=== PATIENT | male | born 1950 | race African-American/Black ===

== ENCOUNTER 2017-03-17 11:53 | Emergency (ER) | payer SELFPAY ==
[~2017-03-17] VITALS: Ht 182.9 cm; Wt 71.8 kg
[~2017-03-17 11:53] MED LIST: ALBUTEROL SULF8.5 GM IH; FLEXERIL10 MG PO; IBUPROFEN600 MG PO; MIRALAX255 GM PO; NAPROSYN500 MG PO; TRAMADOL HCL50 MG PO
[2017-03-17] MEDS ORDERED: MOBIC7.5 MG PO (16:37)
[2017-03-17] MEDS ORDERED: ULTRAM50 MG PO (16:37)
[2017-03-17] MEDS ORDERED: FLEXERIL10 MG PO (16:37)
[2017-03-17 16:56] VITALS: BP 134/74
== END 2017-03-17 16:56 | disposition home or self-care (01) ==
LOC: EME 11:53
DX: M54.9 Dorsalgia, unspecified (principal); M25.511 Pain in right shoulder; M25.562 Pain in left knee; X50.0XXA Overexertion from strenuous movement or load, initial encounter; Y99.0 Civilian activity done for income or pay; E78.5 Hyperlipidemia, unspecified; F17.200 Nicotine dependence, unspecified, uncomplicated
CPT/HCPCS: 71046; 73020; 73030; 73564; 99281; 99285

== ENCOUNTER 2017-05-04 14:16 | Emergency (ER) | payer SELFPAY ==
[~2017-05-04] VITALS: Ht 185.4 cm; Wt 73.3 kg
[~2017-05-04 14:16] MED LIST changes: +MOBIC7.5 MG PO; +ULTRAM50 MG PO
[2017-05-04] MEDS ORDERED: MOBIC7.5 MG PO (17:18)
[2017-05-04] MEDS ORDERED: LIDODERM 5% P1 PATCH TD (17:18)
[2017-05-04] MEDS ORDERED: SKELAXIN800 MG PO (17:18)
[2017-05-04 18:39] VITALS: BP 133/73
== END 2017-05-04 18:40 | disposition home or self-care (01) ==
LOC: EME 14:16
DX: M25.511 Pain in right shoulder (principal); M54.9 Dorsalgia, unspecified; F17.210 Nicotine dependence, cigarettes, uncomplicated
CPT/HCPCS: 71046; J1885